=== PATIENT | female | born 1995 ===

== ENCOUNTER 2017-03-31 11:23 | Inpatient (IN) ==
[~2017-03-31 11:23] MED LIST: EPINEPHrine 1 MG/ML VIAL ONE; LIDOCAINE 2% 5 ML VIAL ONE; ONDANSETRON 4 MG/2 ML VIAL ONE; PROPOFOL 200 MG/20 ML VIAL IV ONE; ROCURONIUM 100 MG/10 ML VIAL IV ONE; SUCCINYLCHOLINE 200 MG/10 ML VIAL ONE
[2017-03-31] MEDS: LACTATED RINGERS 1,000 ML IV SCH ×4 (11:54→22:38)
[2017-03-31] MEDS ORDERED: ONDANSETRON 4 MG/2 ML VIAL IV PRN (11:55)
[2017-03-31] MEDS ORDERED: MEPERIDINE 50 MG/1 ML VIAL IV PRN (11:55)
[2017-03-31] MEDS ORDERED: BUTORPHANOL 2 MG/ML VIAL IV PRN (11:55)
[2017-03-31] MEDS ORDERED: OXYTOCIN/LR 20 UNIT/1,000 ML BAG IV SCH (12:00)
[2017-03-31 12:16] LABS: Basophils % 0.5 % (0.0-0.8); Eosinophils # 0.1 10*3/uL (0.0-0.87); Eosinophils % 0.6 % (0.00-10.9); Hematocrit 33.1 VOL% (35.7-47.0); Hemoglobin 10.1 GM/DL (12.0-16.0); Immature Granulocytes % 2.3 %; Lymphocytes # 1.9 10*3/uL (1.4-4.0); Lymphocytes % 21.1 % (21.3-54.2); Mean Corpuscular HGB Conc 30.5 GM/DL (32-36); Mean Corpuscular Hemoglobin 22 PG (27-34); Mean Corpuscular Volume 73.2 FL (87-102); Monocytes # 0.8 10*3/uL (0.11-0.8); Monocytes % 8.8 % (1.7-12.7); NRBC # 0.02 10*3/uL; Neutrophils # 5.9 10*3/uL (1.4-7.4); Neutrophils % 66.7 % (38.7-73.9); Platelet Count 348 T/CUMM (130-400); Red Blood Count 4.52 MC/CUMM (3.8-5.5); Red Cell Distribution Width 17.6 % (9.3-17.3); White Blood Count 8.8 T/CUMM (4-12)
[2017-03-31] MEDS: CLINDAMYCIN INJ 900 MG in PREMIX 1 EACH IV SCH ×2 (12:38→22:13)
[2017-03-31 12:47] LABS: Albumin 2.6 G/DL (3.4-5.0); Bilirubin,Total 0.5 MG/DL (0.2-1.0); Calcium 8.9 MG/DL (8.5-10.1); Osmolality,Calculated 272.5 MOS/KG (273-304); Potassium 3.9 MMOL/L (3.5-5.1); Total Protein 6.9 G/DL (6.4-8.3)
[2017-03-31] MEDS ORDERED: hydrOXYzine HCL 25 MG/1 ML VIAL IM PRN (16:00)
[2017-03-31] MEDS ORDERED: FAMOTIDINE 20 MG/2 ML VIAL IV ONE (16:00)
[2017-03-31] MEDS ORDERED: ePHEDrine 50 MG/ML AMP IV PRN (16:00)
[2017-03-31] MEDS ORDERED: diphenhydrAMINE 50 MG/1 ML VIAL IV PRN (16:00)
[2017-03-31] MEDS ORDERED: CITRIC ACID/SODIUM CITRATE 30 ML UDCUP PO ONE (16:00)
[2017-03-31] MEDS ORDERED: fentaNYL 2 MCG/ROPIV 0.2% EPID 150 ML EPIDURAL SCH (16:00)
[2017-03-31] MEDS ORDERED: SODIUM CHLORIDE 0.9% 1,000 ML IV ONE ×2 (18:50→21:00)
[2017-03-31] MEDS ORDERED: SODIUM CHLORIDE 0.9% 250 ML IV PRN ×3 (18:56→19:09)
[2017-03-31 19:02] LABS: Cord Arterial Blood HCO3 19.2 MMOL/L
[2017-03-31 19:05] LABS: Cord Venous Blood HCO3 21.7 MMOL/L; Cord Venous Blood PCO2 41.8 MMHG; Cord Venous Blood PO2 29.7
[2017-03-31] MEDS ORDERED: OXYTOCIN 10 UNIT/ML VIAL ONE (19:16)
[2017-03-31] MEDS ORDERED: CLINDAMYCIN INJ 0 ML IV ONE (19:23)
[2017-03-31 19:41] LABS: ABG Base Excess -15.4 MMOL/L (-2.5-2.5); ABG HCO3 12.3 MMOL/L (20-26); ABG PO2 52.6 MM HG (80-95); ABG TCO2 12.6 MMOL/L (23-27); Glucose Heart Surgery 186 MG/DL (74-106); Hemoglobin Heart Surgery 7.7 G/DL (12.0-16.0)
[2017-03-31 19:42] LABS: ABG PH 7.129 (7.35-7.45)
[2017-03-31 19:43] LABS: Potassium Heart/CVR 2.3 MMOL/L (3.5-5.1)
[2017-03-31] MEDS ORDERED: SUGAMMADEX 200 MG/2 ML VIAL IV ONE (19:46)
[2017-03-31] MEDS ORDERED: MORPHINE 10 MG/10 ML VIAL ONE (19:58)
[2017-03-31] MEDS ORDERED: BENZOCAINE/MENTHOL LOZENGE 18/BOX PO PRN (20:28)
[2017-03-31] MEDS ORDERED: ACETAMINOPHEN 325 MG TABLET PO PRN (20:28)
[2017-03-31] MEDS ORDERED: BISACODYL 10 MG SUPP RECTAL PRN (20:28)
[2017-03-31] MEDS ORDERED: NALOXONE 0.4 MG/ML VIAL IV PRN (20:31)
[2017-03-31] MEDS ORDERED: CALCIUM CHLORIDE 1,000 MG/10 ML VIAL IV ONE (20:59)
[2017-03-31] MEDS ORDERED: EPINEPHrine 1 MG/10 ML SYRINGE ONE (20:59)
[2017-03-31] MEDS ORDERED: PROPOFOL 200 MG/20 ML VIAL IV ONE (20:59)
[2017-03-31] MEDS ORDERED: fentaNYL 100 MCG/2 ML VIAL ONE (20:59)
[2017-03-31] MEDS ORDERED: MIDAZOLAM 2 MG/2 ML VIAL ONE (20:59)
[2017-03-31] MEDS ORDERED: SEVOFLURANE 1 UNIT/15 MINUTE INH ONE (20:59)
[2017-03-31] MEDS ORDERED: KETAMINE 500 MG/10 ML VIAL ONE (20:59)
[2017-03-31] MEDS ORDERED: ROCURONIUM 100 MG/10 ML VIAL IV ONE (21:00)
[2017-03-31] MEDS ORDERED: SUCCINYLCHOLINE 200 MG/10 ML VIAL ONE (21:00)
[2017-03-31] MEDS: HYDROmorphone PCA 30 MG/30 ML SYRINGE IV SCH (21:50)
[2017-03-31 22:24] LABS: Hematocrit 33.9 VOL% (35.7-47.0); Hemoglobin 10.7 GM/DL (12.0-16.0)
[2017-03-31 22:37] LABS: Calcium 9.6 MG/DL (8.5-10.1); Magnesium 1.5 MG/DL (1.8-2.4); Potassium 3.8 MMOL/L (3.5-5.1)
[2017-03-31] MEDS: SODIUM CHLORIDE 0.9% 300 ML IV SCH (23:30)
[2017-04-01] MEDS: ONDANSETRON 4 MG/2 ML VIAL IV PRN ×2 (00:03→05:21)
[2017-04-01] MEDS: SODIUM CHLORIDE 0.9% 300 ML IV SCH (02:32)
[2017-04-01] MEDS: CLINDAMYCIN INJ 900 MG in PREMIX 1 EACH IV SCH ×3 (03:03→19:30)
[2017-04-01] MEDS: LACTATED RINGERS 1,000 ML IV SCH ×2 (05:23→13:23)
[2017-04-01 05:44] LABS: Basophils % 0.2 % (0.0-0.8); Hematocrit 28.1 VOL% (35.7-47.0); Hemoglobin 9.1 GM/DL (12.0-16.0); Immature Granulocytes % 3.3 %; Immature Granulocytes Absolute 0.83 #; Lymphocytes # 1.5 10*3/uL (1.4-4.0); Lymphocytes % 5.7 % (21.3-54.2); Mean Corpuscular HGB Conc 32.4 GM/DL (32-36); Mean Corpuscular Hemoglobin 25 PG (27-34); Mean Corpuscular Volume 77.8 FL (87-102); Mean Platelet Volume 10.1 FL (9.6-12.0); Monocytes # 1.7 10*3/uL (0.11-0.8); Monocytes % 6.7 % (1.7-12.7); NRBC # 0.06 10*3/uL; Neutrophils # 21.2 10*3/uL (1.4-7.4); Neutrophils % 84.1 % (38.7-73.9); Platelet Count 211 T/CUMM (130-400); Red Blood Count 3.61 MC/CUMM (3.8-5.5); Red Cell Distribution Width 17.4 % (9.3-17.3); White Blood Count 25.3 T/CUMM (4-12)
[2017-04-01 06:13] LABS: Band Neutrophils 3 % (0-10); Giant Platelets Few; Hypochromasia 1+; Lymphocytes 8 % (20-55); Ovalocytes Slight; Platelet Estimate Adequate; Segmented Neutrophils 85 % (50-85); Total Cells Counted 100
[2017-04-01] MEDS ORDERED: MAGNESIUM SULF RIDER 4 GM in PREMIX 1 EACH IV PRN (08:07)
[2017-04-01] MEDS: MAGNESIUM SULF RIDER 2 GM in PREMIX 1 EACH IV PRN (09:09)
[2017-04-01] MEDS: SODIUM CHLORIDE 0.9% 250 ML IV SCH ×2 (14:38→19:35)
[2017-04-01] MEDS ORDERED: METOPROLOL TARTRATE 5 MG/5 ML VIAL IV PRN (18:54)
[2017-04-01] MEDS ORDERED: hydrALAZINE 20 MG/1 ML VIAL IV ONE (18:55)
[2017-04-01] MEDS: ACETAMINOPHEN 500 MG TABLET PO SCH (19:24)
[2017-04-01] MEDS: METOCLOPRAMIDE 10 MG/2 ML VIAL IV SCH (20:49)
[2017-04-01] MEDS ORDERED: METOPROLOL TARTRATE 25 MG TABLET PO SCH (21:00)
[2017-04-01 21:27] LABS: Hematocrit 24.9 VOL% (35.7-47.0); Hemoglobin 8.7 GM/DL (12.0-16.0)
[2017-04-01] MEDS ORDERED: SODIUM CHLORIDE 0.9% 250 ML IV PRN (22:04)
[2017-04-01] MEDS: HYDROmorphone PCA 30 MG/30 ML SYRINGE IV SCH (22:26)
[2017-04-02] MEDS: ACETAMINOPHEN 500 MG TABLET PO SCH ×3 (00:18→12:22)
[2017-04-02] MEDS: CLINDAMYCIN INJ 900 MG in PREMIX 1 EACH IV SCH ×3 (05:16→20:15)
[2017-04-02] MEDS: METOCLOPRAMIDE 10 MG/2 ML VIAL IV SCH ×3 (05:17→20:13)
[2017-04-02 06:02] LABS: Basophils # 0.1 10*3/uL (0.0-0.2); Basophils % 0.3 % (0.0-0.8); Eosinophils % 0.1 % (0.00-10.9); Hematocrit 30.3 VOL% (35.7-47.0); Hemoglobin 10.6 GM/DL (12.0-16.0); Immature Granulocytes % 2.3 %; Lymphocytes # 1.7 10*3/uL (1.4-4.0); Lymphocytes % 9.7 % (21.3-54.2); Mean Corpuscular Hemoglobin 27 PG (27-34); Mean Corpuscular Volume 77.9 FL (87-102); Mean Platelet Volume 10.1 FL (9.6-12.0); Monocytes # 1.8 10*3/uL (0.11-0.8); Monocytes % 10.6 % (1.7-12.7); NRBC # 0.02 10*3/uL; Neutrophils # 13.5 10*3/uL (1.4-7.4); Platelet Count 157 T/CUMM (130-400); Red Blood Count 3.89 MC/CUMM (3.8-5.5); Red Cell Distribution Width 17.1 % (9.3-17.3); White Blood Count 17.4 T/CUMM (4-12)
[2017-04-02 06:19] LABS: Magnesium 1.5 MG/DL (1.8-2.4); Osmolality,Calculated 272.5 MOS/KG (273-304); Potassium 3.6 MMOL/L (3.5-5.1)
[2017-04-02] MEDS: FUROSEMIDE 40 MG/4 ML VIAL IV SCH ×3 (09:01→20:42)
[2017-04-02 12:18] LABS: Basophils % 0.2 % (0.0-0.8); Eosinophils % 0.1 % (0.00-10.9); Hematocrit 29.9 VOL% (35.7-47.0); Hemoglobin 10.4 GM/DL (12.0-16.0); Immature Granulocytes % 2.9 %; Lymphocytes # 1.2 10*3/uL (1.4-4.0); Lymphocytes % 6.8 % (21.3-54.2); Mean Corpuscular HGB Conc 34.8 GM/DL (32-36); Mean Corpuscular Hemoglobin 27 PG (27-34); Mean Corpuscular Volume 78.3 FL (87-102); Mean Platelet Volume 9.7 FL (9.6-12.0); Monocytes # 1.5 10*3/uL (0.11-0.8); NRBC # 0.02 10*3/uL; Neutrophils # 13.7 10*3/uL (1.4-7.4); Platelet Count 159 T/CUMM (130-400); Red Blood Count 3.82 MC/CUMM (3.8-5.5)
[2017-04-02 17:53] LABS: Hematocrit 28.8 VOL% (35.7-47.0); Hemoglobin 10.1 GM/DL (12.0-16.0); Mean Corpuscular HGB Conc 35.1 GM/DL (32-36); Mean Corpuscular Hemoglobin 28 PG (27-34); Mean Corpuscular Volume 78.7 FL (87-102); Mean Platelet Volume 9.5 FL (9.6-12.0); Neutrophils % 75.9 % (38.7-73.9); Platelet Count 156 T/CUMM (130-400); Red Blood Count 3.66 MC/CUMM (3.8-5.5); Red Cell Distribution Width 17.1 % (9.3-17.3); White Blood Count 15.9 T/CUMM (4-12)
[2017-04-02 17:54] LABS: Basophils % 0.3 % (0.0-0.8); Eosinophils # 0.1 10*3/uL (0.0-0.87); Eosinophils % 0.3 % (0.00-10.9); Immature Granulocytes % 2.7 %; Immature Granulocytes Absolute 0.43 #; Lymphocytes # 1.7 10*3/uL (1.4-4.0); Lymphocytes % 10.7 % (21.3-54.2); Monocytes # 1.6 10*3/uL (0.11-0.8); Monocytes % 10.1 % (1.7-12.7); NRBC # 0.04 10*3/uL; Neutrophils # 12.1 10*3/uL (1.4-7.4)
[2017-04-02] MEDS: MAGNESIUM SULF RIDER 2 GM in PREMIX 1 EACH IV PRN (21:52)
[2017-04-02 23:42] LABS: Basophils % 0.2 % (0.0-0.8); Eosinophils # 0.1 10*3/uL (0.0-0.87); Eosinophils % 0.3 % (0.00-10.9); Hemoglobin 10.1 GM/DL (12.0-16.0); Immature Granulocytes % 3.2 %; Lymphocytes # 1.4 10*3/uL (1.4-4.0); Lymphocytes % 9.2 % (21.3-54.2); Mean Corpuscular HGB Conc 34.8 GM/DL (32-36); Mean Corpuscular Hemoglobin 28 PG (27-34); Mean Corpuscular Volume 79.2 FL (87-102); Mean Platelet Volume 9.6 FL (9.6-12.0); Monocytes # 1.6 10*3/uL (0.11-0.8); Monocytes % 10.1 % (1.7-12.7); NRBC # 0.03 10*3/uL; Neutrophils # 11.9 10*3/uL (1.4-7.4); Platelet Count 170 T/CUMM (130-400); Red Blood Count 3.66 MC/CUMM (3.8-5.5); Red Cell Distribution Width 16.9 % (9.3-17.3); White Blood Count 15.4 T/CUMM (4-12)
[2017-04-03] MEDS: METOCLOPRAMIDE 10 MG/2 ML VIAL IV SCH ×2 (04:24→14:40)
[2017-04-03] MEDS: CLINDAMYCIN INJ 900 MG in PREMIX 1 EACH IV SCH ×3 (04:24→20:00)
[2017-04-03 06:21] LABS: Basophils % 0.2 % (0.0-0.8); Eosinophils # 0.1 10*3/uL (0.0-0.87); Eosinophils % 0.3 % (0.00-10.9); Hematocrit 30.8 VOL% (35.7-47.0); Hemoglobin 10.5 GM/DL (12.0-16.0); Immature Granulocytes % 3.9 %; Immature Granulocytes Absolute 0.58 #; Lymphocytes # 1.5 10*3/uL (1.4-4.0); Lymphocytes % 9.9 % (21.3-54.2); Mean Corpuscular HGB Conc 34.1 GM/DL (32-36); Mean Corpuscular Hemoglobin 27 PG (27-34); Mean Corpuscular Volume 79.2 FL (87-102); Mean Platelet Volume 9.7 FL (9.6-12.0); Monocytes # 1.2 10*3/uL (0.11-0.8); Monocytes % 8.3 % (1.7-12.7); NRBC # 0.03 10*3/uL; Neutrophils # 11.6 10*3/uL (1.4-7.4); Neutrophils % 77.4 % (38.7-73.9); Platelet Count 187 T/CUMM (130-400); Red Blood Count 3.89 MC/CUMM (3.8-5.5); Red Cell Distribution Width 17.2 % (9.3-17.3)
[2017-04-03 06:46] LABS: Calcium 7.9 MG/DL (8.5-10.1); Magnesium 2.1 MG/DL (1.8-2.4); Osmolality,Calculated 273.4 MOS/KG (273-304); Potassium 3.8 MMOL/L (3.5-5.1)
[2017-04-03 07:59] LABS: Hypochromasia 1+; Polychromasia Slight
[2017-04-03] MEDS: DOCUSATE SODIUM 100 MG CAPSULE PO PRN (08:46)
[2017-04-04] MEDS: CLINDAMYCIN INJ 900 MG in PREMIX 1 EACH IV SCH ×3 (03:28→20:25)
[2017-04-04 06:48] LABS: Basophils # 0.1 10*3/uL (0.0-0.2); Basophils % 0.4 % (0.0-0.8); Eosinophils # 0.1 10*3/uL (0.0-0.87); Hematocrit 33.8 VOL% (35.7-47.0); Hemoglobin 11.4 GM/DL (12.0-16.0); Immature Granulocytes % 4.9 %; Immature Granulocytes Absolute 0.61 #; Lymphocytes # 1.4 10*3/uL (1.4-4.0); Lymphocytes % 11.4 % (21.3-54.2); Mean Corpuscular HGB Conc 33.7 GM/DL (32-36); Mean Corpuscular Hemoglobin 27 PG (27-34); Mean Corpuscular Volume 79.9 FL (87-102); Mean Platelet Volume 9.3 FL (9.6-12.0); Monocytes # 1.1 10*3/uL (0.11-0.8); NRBC # 0.02 10*3/uL; Neutrophils # 9.1 10*3/uL (1.4-7.4); Neutrophils % 73.3 % (38.7-73.9); Platelet Count 222 T/CUMM (130-400); Red Blood Count 4.23 MC/CUMM (3.8-5.5); White Blood Count 12.4 T/CUMM (4-12)
[2017-04-04 07:07] LABS: Calcium 8.1 MG/DL (8.5-10.1); Magnesium 1.9 MG/DL (1.8-2.4); Osmolality,Calculated 270.7 MOS/KG (273-304); Potassium 3.7 MMOL/L (3.5-5.1)
[2017-04-04 07:38] LABS: Band Neutrophils 1 % (0-10); Hypochromasia 2+; Lymphocytes 10 % (20-55); Microcytosis 1+; Myelocytes 2 %; Platelet Estimate Adequate; Segmented Neutrophils 74 % (50-85); Total Cells Counted 100
[2017-04-04] MEDS: DOCUSATE SODIUM 100 MG CAPSULE PO PRN ×2 (09:10→20:25)
[2017-04-04] MEDS: MAGNESIUM HYDROXIDE SUSP 30 ML UDCUP PO PRN ×2 (09:10→20:25)
[2017-04-04] MEDS: SIMETHICONE CHEW 80 MG TABLET PO PRN ×2 (09:10→20:25)
[2017-04-04] MEDS: IBUPROFEN 800 MG TABLET PO PRN (20:28)
[2017-04-05] MEDS: CLINDAMYCIN INJ 900 MG in PREMIX 1 EACH IV SCH ×3 (03:58→21:45)
[2017-04-05] MEDS: IBUPROFEN 800 MG TABLET PO PRN ×2 (07:15→16:31)
[2017-04-05] MEDS: DOCUSATE SODIUM 100 MG CAPSULE PO PRN ×2 (08:45→21:45)
[2017-04-05] MEDS: FERROUS SULFATE 325 MG TABLET PO SCH ×2 (13:27→21:45)
[2017-04-06] MEDS: CLINDAMYCIN INJ 900 MG in PREMIX 1 EACH IV SCH (05:03)
[2017-04-06 08:30] VITALS: BP 138/81
[2017-04-06] MEDS: FERROUS SULFATE 325 MG TABLET PO SCH (09:04)
== END 2017-04-06 14:00 | disposition home or self-care (01) | DRG 542 ==
LOC: N.LDOUT 11:23 → N.LD 11:26 → N.ICU 21:14 → N.OB 04-03 16:33
PROVIDERS: ADMIT Obstetrics & Gynecology; ATTEND Obstetrics & Gynecology